=== PATIENT | female | born 2000 | race Caucasian/White ===

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

== ENCOUNTER 2018-01-21 13:08 | Emergency (ER) | payer OTHER ==
[2018-01-21 14:25] VITALS: BP 101/59
[2018-01-21] MEDS ORDERED: Ondansetron ODT TAB* 4 MG PO ONE (14:45)
--- NOTE | 2018-01-21 14:45 | UC ---
Headache HPI - HPI Summary HPI Summary: Pt presents with c/o sudden onset of GONZALES and "loss of peripheral" vision. Pt states that she was carrying plastic totes at work and smelled "very plastic smell" and then noticed headache, nausea, and then loss of peripheral vision. Pt took 800mg PO ibuprofen and states that peripheral vision has returned, and now has nausea and dull GONZALES at time of examination. - History Of Current Complaint Stated Complaint: HEADACHE, NAUSEA, VISION CONCERN Time Seen by Provider: 01/21/18 14:11 Hx Obtained From: Patient Hx Last Menstrual Period: 12/29/17 ?: No Onset/Duration: Sudden Onset, Lasting Minutes Onset Of Symptoms: Sudden, Resolved Initially Headache Was: Moderate Currently Pain Is: Moderate Pain Intensity: 8 Timing: Constant Character: Dull Location of Headache: Diffuse Aggravating Factor(s): Nothing Allevating Factor(s): Rest, Medication Associated Signs And Symptoms: Positive: Nausea - Risk Factors SAH Risk Factors: Negative Meningitis Risk Factors: Negative SDH Risk Factors: Negative Temporal Arteritis Risk Factors: Female - Allergies/Home Medications Allergies/Adverse Reactions: Allergies Allergy/AdvReac Type Severity Reaction Status Date / Time cefprozil [From Cefzil] Allergy Unknown Verified 01/21/18 14:15 Reaction Details Home Medications: Home Medications Ibuprofen TAB* [Advil TAB*] 800 mg PO Q8H PRN 01/21/18 [History Confirmed ] PMH/Surg Hx/FS Hx/Imm Hx Previously Healthy: Yes - Surgical History Surgical History: Yes Surgery Procedure, Year, and Place: [place], 2016; T&A, 06/22/15, [facility] - Family History Known Family History: Positive: Diabetes - Social History Occupation: Employed Full-time Lives: With Family Alcohol Use: Occasionally Substance Use Type: None Smoking Status (MU): Light Every Day Tobacco Smoker Type: Cigarettes Amount Used/How Often: <1/2 PPD Length of Time of Smoking/Using Tobacco: Since Age 13 Have You Smoked in the Last Year: Yes Household Exposure Type: Cigarettes - Immunization History Most Recent Influenza Vaccination: Not the Season Vaccination Up to Date: Yes Review of Systems Constitutional: Negative Skin: Negative Eyes: Blurred Vision - resolved ENT: Negative Respiratory: Negative Cardiovascular: Negative Gastrointestinal: Nausea Genitourinary: Negative Motor: Negative Neurovascular: Negative Musculoskeletal: Negative Neurological: Headache Psychological: Negative Is Patient Immunocompromised?: No All Other Systems Reviewed And Are Negative: Yes Physical Exam Triage Information Reviewed: Yes Appearance: Well-Appearing Vital Signs: Initial Vital Signs Temp 97.9 F 01/21/18 14:15 Pulse 82 01/21/18 14:15 Resp 16 01/21/18 14:15 BP 101/59 01/21/18 14:15 Pulse Ox 100 01/21/18 14:15 Vital Signs Reviewed: Yes Eye Exam: Normal, Other - PERRLA ENT Exam: Normal Dental Exam: Normal Neck exam: Normal Respiratory Exam: Normal Cardiovascular Exam: Normal Musculoskeletal Exam: Normal Neurological Exam: Normal Neurological: Positive: Alert, Muscle Tone Normal Psychological Exam: Normal Skin Exam: Normal Headache Course/Dx - Course Course Of Treatment: Pt discusssed famhx of polycythemia vera (dad) and migraines (aunt). Pt fell asleep in exam room and woke staing her nausea had resolved and GONZALES was only a dull ache now. - Differential Dx/Diagnosis Differential Diagnosis/HQI/PQRI: Migraine, Tension Headache Provider Diagnoses: migraine Discharge - Sign-Out/Discharge Documenting (check all that apply): Patient Departure All imaging exams completed and their final reports reviewed: No Studies - Discharge Plan Condition: Stable Disposition: HOME Patient Education Materials: Migraine Headache (ED) Forms: *Work Release Referrals: Kaleb Leung MD [Primary Care Provider] - If Needed - Billing Disposition and Condition Condition: STABLE Disposition: Home
== END 2018-01-21 15:25 | disposition home or self-care (01) ==
LOC: UCCORT 13:08
DX: G43.909 Migraine, unspecified, not intractable, without status migrainosus (principal); Z88.1 Allergy status to other antibiotic agents; F17.210 Nicotine dependence, cigarettes, uncomplicated
CPT/HCPCS: 99212; A9270-GY; G0463

== ENCOUNTER 2019-02-25 19:12 | Emergency (ER) | payer OTHER ==
[2019-02-25 19:47] VITALS: BP 129/57
--- NOTE | 2019-02-25 20:30 | UC ---
Throat Pain/Nasal Yogi HPI - HPI Summary HPI Summary: 18-year-old female presents with complaints of nasal congestion, runny nose, postnasal drip, sore throat, and bilateral ear fullness since yesterday. States she woke up this morning her sore throat was much more severe however it has improved throughout the day. Associated with some subjective fever and chills. Denies dysphagia, cough, chest pain, shortness of breath, abdominal pain, nausea, or vomiting. - History of Current Complaint Chief Complaint: UCRespiratory Stated Complaint: COUGH/SORE THROAT Time Seen by Provider: 02/25/19 20:18 Hx Obtained From: Patient Hx Last Menstrual Period: 02/17/19 Pain Intensity: 3 - Allergies/Home Medications Allergies/Adverse Reactions: Allergies Allergy/AdvReac Type Severity Reaction Status Date / Time cefprozil [From Cefzil] Allergy Unknown Verified 02/25/19 19:43 Reaction Details Home Medications: Home Medications NK [No Home Medications Reported] 02/25/19 [History Confirmed 02/25/19] PMH/Surg Hx/FS Hx/Imm Hx Previously Healthy: Yes - Denies significant PMH - Surgical History Surgical History: Yes Surgery Procedure, Year, and Place: [place], 2016; T&A, 06/22/15, [facility] [place] - Family History Known Family History: Positive: Diabetes - Social History Occupation: Employed Full-time Lives: With Family Alcohol Use: Occasionally Substance Use Type: None Smoking Status (MU): Light Every Day Tobacco Smoker Type: Cigarettes Amount Used/How Often: <1/2 PPD Length of Time of Smoking/Using Tobacco: Since Age 13 Have You Smoked in the Last Year: Yes Household Exposure Type: Cigarettes - Immunization History Most Recent Influenza Vaccination: Not the Season Vaccination Up to Date: Yes Review of Systems All Other Systems Reviewed And Are Negative: Yes Constitutional: Positive: Fever - subjective, Chills Skin: Negative: Rash Eyes: Negative: Drainage, Eye Redness ENT: Positive: Sore Throat, Nasal Discharge, Sinus Congestion, Sinus Pain/ Tenderness Respiratory: Negative: Shortness Of Breath, Cough Cardiovascular: Negative: Chest Pain Gastrointestinal: Negative: Abdominal Pain, Vomiting, Nausea Genitourinary: Positive: Negative Musculoskeletal: Positive: Negative Neurological: Positive: Negative Is Patient Immunocompromised?: No Physical Exam - Summary Physical Exam Summary: GENERAL APPEARANCE: Well developed, well nourished, alert and cooperative, and appears to be in no acute distress. EYES: Conjunctiva clear. No drainage. EARS: External auditory canals and tympanic membranes clear, hearing grossly intact. NOSE: Moderate nasal congestion. Clear nasal discharge. THROAT: Mild pharyngeal erythema with postnasal drip. Surgically absent tonsils. Uvula midline. NECK: Neck supple, non-tender without lymphadenopathy. CARDIAC: Normal S1 and S2. No S3, S4 or murmurs. Rhythm is regular. There is no peripheral edema, cyanosis or pallor. Extremities are warm and well perfused. Capillary refill is less than 2 seconds. Peripheral pulses intact. LUNGS: Clear to auscultation without rales, rhonchi, wheezing or diminished breath sounds. ABDOMEN: Positive bowel sounds. Soft, nondistended, nontender. No guarding or rebound. No masses or hepatosplenomegally. MUSKULOSKELETAL: ROM intact to all extremities. No joint erythema or tenderness. Normal muscular development. Normal gait. SKIN: Skin normal color, texture and turgor with no lesions or eruptions. Triage Information Reviewed: Yes Vital Signs: Initial Vital Signs Temp 97.8 F 02/25/19 19:43 Pulse 98 02/25/19 19:43 Resp 16 02/25/19 19:43 BP 129/57 02/25/19 19:43 Pulse Ox 100 02/25/19 19:43 Vital Signs Reviewed: Yes Throat Pain/Nasal Course/Dx - Course Course Of Treatment: 18-year-old female presents with complaints of nasal congestion, runny nose, postnasal drip, sore throat, and bilateral ear fullness since yesterday. States she woke up this morning her sore throat was much more severe however it has improved throughout the day. Associated with some subjective fever and chills. Denies dysphagia, cough, chest pain, shortness of breath, abdominal pain, nausea, or vomiting. Afebrile. Vital signs stable. Patient had moderate nasal congestion with clear nasal discharge, mild pharyngeal erythema with postnasal drip, surgically absent tonsils, no cervical lymphadenopathy, clear bilateral breath sounds, and otherwise unremarkable exam. Rapid strep test was negative. Reviewed results with the patient. Recommending symptomatically treatment for viral upper respiratory infection. She is to follow-up with her primary care provider in 5-7 days if symptoms are not improving. Anticipatory guidance and warning symptoms reviewed with patient. Verbalizes understanding and agrees with plan of care. - Differential Dx/Diagnosis Differential Diagnosis/HQI/PQRI: Mononucleosis, Pharyngitis, Sinusitis, Tonsillitis, URI Provider Diagnosis: Viral URI Discharge ED - Sign-Out/Discharge Documenting (check all that apply): Patient Departure All imaging exams completed and their final reports reviewed: No Studies - Discharge Plan Condition: Stable Disposition: HOME Patient Education Materials: Upper Respiratory Infection (ED) Forms: *Work Release Referrals: Kaleb Leung MD [Primary Care Provider] - 5 Days Additional Instructions: Your history and exam are consistent with a viral upper respiratory infection. Viral infections do not respond to antibiotics and are limited to the treatment of symptoms. Viral infections typically run their course in 7-10 days. Drink plenty of fluids to avoid dehydration especially if you are running any fever. Use a saline rinse kit such as Neti Pot or NeilMed at least twice a day to help thin secretions and promote drainage of the sinuses. Use over the counter fluticasone (Flonase) nasal spray 2 sprays each nostril once daily. Try using an over the counter decongestant such as Sudafed according to directions for the congestion. Take over the counter acetaminophen (Tylenol) or ibuprofen (Advil, Motrin) according to directions as needed for pain or fever. Use salt water gargles several times a day if you have a sore throat. You may also use Chloraseptic spray or Cepacol lonzenges according to directions which contain a numbing medication and can provide some temporary relief from your sore throat. Follow up with your primary care provider in 5-7 days if symptoms persist. Seek immediate medical attention in the emergency room if you have fever greater than 100.5 F despite taking acetaminophen or ibuprofen, have chest pain , difficulty breathing, are unable to swallow, or have any worsening of symptoms. - Billing Disposition and Condition Condition: STABLE Disposition: Home
== END 2019-02-25 20:45 | disposition home or self-care (01) ==
LOC: UCCORT 19:12
DX: J06.9 Acute upper respiratory infection, unspecified (principal); F17.210 Nicotine dependence, cigarettes, uncomplicated; Z88.1 Allergy status to other antibiotic agents
CPT/HCPCS: 87651; 99211; G0463

== ENCOUNTER 2019-06-02 20:22 | Emergency (ER) | payer SELFPAY ==
--- NOTE | 2019-06-02 20:32 | UC ---
FLU HPI - HPI Summary HPI Summary: 18 yo female presents with abdominal pain and diarrhea. She tells me that for the last 3-4 days she has had periumbilical abdominal pain with loose stools and diarrhea >7times a day. She has had a decreased appetite and felt nauseous intermittently. Today she states her pain is the worst it has been and seems to be more to the right of her belly button. She feels very tired overall. Has not taken anything OTC for her symptoms. [place] feverish last night, but did not take her temperature. Reports that about 2-3 weeks ago she was in the ER and she was given two one-time doses of anbx for an animal bite. Denies SOB, chest pain, back pain, flank pain, vaginal bleeding or discharge, or dysuria. - History of Current Complaint Stated Complaint: FLU LIKE SYMPTOMS Time Seen by Provider: 06/02/19 20:31 Hx Obtained From: Patient Hx Last Menstrual Period: 02/17/19 Onset/Duration: Gradual Onset Severity Currently: Moderate Severity Initially: Moderate Pain Intensity: 7 Pain Scale Used: 0-10 Numeric - Allergy/Home Medications Allergies/Adverse Reactions: Allergies Allergy/AdvReac Type Severity Reaction Status Date / Time cefprozil [From Cefzil] Allergy Unknown Verified 06/02/19 20:37 Reaction Details PMH/Surg Hx/FS Hx/Imm Hx - Additional Past Medical History Additional PMH: None - Surgical History Surgical History: Yes Surgery Procedure, Year, and Place: [place], 2016; T&A, 06/22/15, [facility] [place] - Family History Known Family History: Positive: Diabetes - Social History Occupation: Employed Full-time Lives: With Family Alcohol Use: Occasionally Substance Use Type: None Smoking Status (MU): Light Every Day Tobacco Smoker Type: Cigarettes Amount Used/How Often: <1/2 PPD Length of Time of Smoking/Using Tobacco: Since Age 13 Have You Smoked in the Last Year: Yes Household Exposure Type: Cigarettes - Immunization History Most Recent Influenza Vaccination: Not the 2014/2015 Season Vaccination Up to Date: Yes Review of Systems All Other Systems Reviewed And Are Negative: No Constitutional: Positive: Fatigue Skin: Positive: Negative Eyes: Positive: Negative ENT: Positive: Negative Respiratory: Positive: Negative Cardiovascular: Positive: Negative Gastrointestinal: Positive: Abdominal Pain, Diarrhea Genitourinary: Positive: Negative Neurovascular: Positive: Negative Neurological: Positive: Negative Psychological: Positive: Negative Physical Exam - Summary Physical Exam Summary: GENERAL: NAD. WDWN. No pain distress. SKIN: No rashes, sores, lesions, or open wounds. NECK: Supple. Nontender. No lymphadenopathy. CHEST: CTAB. No r/r/w. No accessory muscle use. Breathing comfortably and in no distress. CV: Tachycardic. Pulses intact. Brisk cap refill. ABDOMEN: Mild periumbilical and RLQ TTP. Mild RLQ guarding. No CVA tenderness. Bowel sounds present NEURO: Alert. PSYCH: Age appropriate behavior. Triage Information Reviewed: Yes Vital Signs: Vital Signs: Temp Pulse Resp BP Pulse Ox 98.8 F 114 12 128/77 98 06/02/19 20:32 06/02/19 20:32 06/02/19 20:32 06/02/19 20:32 06/02/19 20:32 Laboratory Tests 06/02/19 06/02/19 06/02/19 20:44 20:45 20:47 POC Urine Color Yellow POC Urine Clarity Clear POC Urine pH 5.5 POC Ur Specif [place] >= 1.030 POC Urine Protein Negative POC Ur Glucose (UA) Negative POC Urine Ketones Negative POC Urine Blood Negative POC Urine Nitrite Negative POC Urine Bilirubin 1+ A POC Urine Urobilinogen 0.2 POC U Leukocyte Esteras Negative POC Ur Test Negative Influenza A (Rapid) Negative Influenza B (Rapid) Negative Vital Signs Reviewed: Yes Flu Course/Dx - Course Course Of Treatment: UA and urine negative. POC flu negative. DDx includes C. diff and appendicitis and viral diarrhea. --- recommend going to the ED for further evaluation. Pt was agreeable to this and her boyfriend with her now will drive her. - Differential Dx/Diagnosis Provider Diagnosis: Periumbilical pain, Diarrhea Discharge ED - Sign-Out/Discharge Documenting (check all that apply): Patient Departure All imaging exams completed and their final reports reviewed: No Studies - Discharge Plan Condition: Stable Disposition: HOME Referrals: Kaleb Leung MD [Primary Care Provider] - Additional Instructions: Please go to the ER for further evaluation of your RLQ pain and diarrhea - Billing Disposition and Condition Condition: STABLE Disposition: Home
[2019-06-02 20:36] VITALS: BP 128/77
[2019-06-02 20:55] LABS: Influenza A Molecular NEGATIVE (Negative); Influenza B Molecular NEGATIVE (Negative)
== END 2019-06-02 21:04 | disposition home or self-care (01) ==
LOC: UCCORT 20:22
DX: R10.33 Periumbilical pain (principal); R19.7 Diarrhea, unspecified; F17.210 Nicotine dependence, cigarettes, uncomplicated; Z88.1 Allergy status to other antibiotic agents
CPT/HCPCS: 81003; 84702; 99212; G0463